=== PATIENT | male | born 1985 | race Caucasian/White ===

== ENCOUNTER 2020-11-11 07:28 | Day surgery (SDC) | payer OTHER, SELFPAY ==
[2020-11-11] VITALS (12 sets, daily range): BP systolic 120–157; BP diastolic 68–99; PULSE 72–108; RESP 16–20; TEMP 36.4–36.5; O2SAT 93–100
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
[2020-11-11 08:24] LABS: Basophils Absolute Auto 0.1 K/mm3 (0.0-0.1); Basophils Percent Auto 0.3 % (0.2-1.2); Eosinophils Absolute Auto 0.2 K/mm3 (0-0.3); Eosinophils Percent Auto 1.2 % (0-4.4); Hematocrit 44.8 % (42.0-52.0); Hemoglobin 15.9 g/dL (14.0-18.0); Immature Granulocyte Absolute 0.08 K/mm3 (0.00-0.031); Immature Granulocyte Percent A 0.5 % (0-0.5); Lymphocytes Absolute Auto 2.73 K/mm3 (0.9-3.2); Lymphocytes Percent Auto 17.9 % (18.3-44.2); Mean Corpuscular HGB Conc 35.5 g/dl (32-36); Mean Corpuscular Volume 90.1 fl (80-100); Mean Platelet Volume 8.5 fl (7.4-10.4); Monocytes Absolute Auto 0.8 K/mm3 (0.1-0.6); Neutrophils Absolute Auto 11.4 K/mm3 (1.3-6.7); Neutrophils Percent Auto 75.1 % (45.5-73.1); Platelet Count Result 299 k/mm3 (150-375); Red Blood Count 4.97 M/mm3 (4.6-6.20); Red Cell Distribution Width 12.5 % (11.5-14.5); White Blood Count 15.3 K/mm3 (4.5-10.0)
[2020-11-11 08:34] LABS: INR 0.9; Prothrombin Time 13.1 Seconds (11.1-14.7)
[2020-11-11 08:39] LABS: Alanine Aminotransferase 21 U/L (4-50); Alkaline Phosphatase 69 U/L (38-126); Anion Gap 13 mmol/L (8-16); Aspartate Amino Transferase 32 U/L (17-59); Bilirubin,Total 0.4 mg/dL (0.2-1.3); Blood Urea Nitrogen 8 mg/dL (9-20); Calcium 8.5 mg/dL (8.4-10.2); Carbon Dioxide 22 mmol/L (22-30); Chloride 107 mmol/L (98-107); Estimated CRCL calculation 121 ml/min; Estimated Glomerular Filt Rate > 60; Glucose 102 mg/dL (75-110); Potassium 3.9 mmol/L (3.4-5.0); Sodium 142 mmol/L (137-145)
[2020-11-11] MEDS: TETANUS,DIPHTHERIA,AC PERTUSSIS ADULT (0.5 ML) BOOSTRIX IM (09:07)
[2020-11-11] MEDS: LACTATED RINGERS 1,000 ML 999 ML IV CONT (09:07)
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
--- NOTE | 2020-11-11 12:00 | WPDHPUPDATE1 ---
History and Physical Update Update Date/Time: 11/11/20 12:00 History and Physical has been reviewed, including an updated exam of the patient. There are NO changes in the patient's condition. Risks, benefits, and alternatives have been discussed and questions answered. Patient agrees to proceed with procedure.
--- NOTE | 2020-11-11 12:06 | WPDANESEFPP ---
Anes - Eval Final PreProcedure Day of Procedure 11/11/20 12:06 Patient weight: normal Heart: regular rate and rhythm Lungs: clear to auscultation and normal air movement Airway: Mallampati scale class IV and special considerations poor opening (due to pain and dried blood on laceration) Neurological: alert and oriented Last oral intake: >/= 8 hours ASA classification: II Emergent: yes Anesthetic plan: proceed Anesthesia type and monitoring: general GIVS and standard monitoring Informed Consent: The patient's anesthetic plan and its attendant risks and benefits were discussed with the patient/family/POA. Questions were solicited and answers provided to the satisfaction of the patient/family/POA.
[2020-11-11] MEDS: LACTATED RINGERS 1,000 ML 30 ML IV CONT (12:10)
[2020-11-11] MEDS: LIDO 1%/EPINEPHRINE 1:100,000 20 ML VIAL 50 ML INFILTRATE (12:40)
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
== END 2020-11-11 15:20 | disposition home or self-care (01) ==
LOC: ANHED 11:54 → ANHSURGERY 11:55
PROVIDERS: Emergency Provider General Practice; Visit Provider Plastic Surgery
PROC: (CPT 13152; principal; 2020-11-11 12:00)
DX: S01.511A Laceration without foreign body of lip, initial encounter (principal); V89.2XXA Person injured in unspecified motor-vehicle accident, traffic, initial encounter; F17.200 Nicotine dependence, unspecified, uncomplicated; S30.1XXA Contusion of abdominal wall, initial encounter; N28.89 Other specified disorders of kidney and ureter; Z23 Encounter for immunization
CPT/HCPCS: 13152; 36415; 70450; 70486; 71260; 72125; 74177; 80053; 85025; 85610; 85730; 90471; 90715; 96365; 99285; A9270; J0330; J0690; J2250; J2405; J2704; J3010; J7120; Q9967

== ENCOUNTER 2021-02-27 08:00 | Outpatient (CLI) | payer OTHER, SELFPAY ==
--- NOTE | ~2021-02-27 | CT_ITS ---
EXAMINATION: CT abdomen wo/w con EXAM DATE: 02/27/2021 08:26 INDICATION: Right renal mass on CT. TECHNIQUE: Spiral CT of the abdomen was performed without and then with intravenous injection of 100 mL Omnipaque 350. Axial, coronal and sagittal images of the abdomen were reviewed. The dose-length product (DLP) for this examination was 346.68 mGy-cm. The exposure was tailored according to patien t size (auto mA exposure control), and iterative reconstruction (ASIR) was used as additional dose re duction technique. Comparison is made to prior examination from 11/11/2020. FINDINGS: Again there is a mass in the superior pole of the right kidney extending toward the hilum m easuring 3.0 cm, malignancy. There is fullness to soft tissue between the pancreas and the duodenal s weep, without discrete fat planes identified between the structures. Difficult to measure region give n absence fat planes, but region could be approximately 4 x 6 cm and could be matted lymphadenopathy. There are increased number of normal-sized mesenteric lymph nodes visible. No nephrolithiasis on the precontrast scan. No hydronephrosis. The liver, spleen, adrenal glands and pancreas are unremarkable. Gallbladder is unremarkable. No bi liary obstruction. The appendix is normal. The stomach and small bowel are unremarkable. There is expected amount of colonic stool. No free intraperitoneal gas. The heart is normal in size. The re are no pericardial or pleural effusions. The lung bases are unremarkable. There are no osteoblas tic or osteolytic lesions identified. IMPRESSION: Right kidney superior poles 3 cm mass and suspicion of developing matted portacaval lymph adenopathy. Differential diagnosis includes renal cell cancer with metastatic disease, both could be lymphoma, or could be renal cell cancer and lymphoma. Recommend , oncology consult for most appropr iate next course given no good window present for percutaneous CT-guided biopsy. Reviewed, dictated and finalized at location B. IMPRESSION: Right kidney superior poles 3 cm mass and suspicion of developing m atted portacaval lymphadenopathy. Differential diagnosis includes renal cell ca ncer with metastatic disease, both could be lymphoma, or could be renal cell ca ncer and lymphoma. Recommend , oncology consult for most appropriate next cou rse given no good window present for percutaneous CT-guided biopsy.
== END 2021-02-27 08:01 | disposition home or self-care (01) ==
LOC: CHSIMG 08:02
PROVIDERS: PCP Internal Medicine; Visit Provider Internal Medicine
DX: N28.89 Other specified disorders of kidney and ureter (principal)
CPT/HCPCS: 74170; Q9967

== ENCOUNTER 2021-05-03 03:28 | Emergency (ER) | payer OTHER, SELFPAY ==
[2021-05-03] VITALS (7 sets, daily range): BP systolic 120–129; BP diastolic 70; PULSE 89–112; RESP 16–22; TEMP 36.6–37; O2SAT 95–98
--- NOTE | ~2021-05-03 | XR_ITS ---
EXAMINATION: XR chest 2V DATE: 05/03/2021 04:46 INDICATION: Dyspnea and wheezing TECHNIQUE: PA and lateral views of the chest were obtained. COMPARISON: Chest CT dated 11/11/2020 FINDINGS: Calcified right middle lobe nodule consistent with old granulomatous disease. No other airspace opaci ties, pulmonary edema, pleural effusion or pneumothorax. The cardiomediastinal silhouette is normal. Visualized bones and soft tissues are unremarkable. IMPRESSION: 1. No acute cardiopulmonary disease. Reviewed, dictated and finalized at location A.
--- NOTE | 2021-05-03 03:45 | ED.GENADULT ---
HPI - General Adult General Chief complaint: Unspecified Stated complaint: sob Time Seen by Provider: 05/03/21 03:45 Source: patient Mode of arrival: EMS Limitations: no limitations Related Data Allergies Allergy/AdvReac Type Severity Reaction Status Date / Time No Known Allergies Allergy Verified 11/11/20 07:35 PMFSH Past Medical History Medical History Patient denies medical problems Surgical History Surgical History (Updated 11/11/20 @ 08:15 by Daly Angeles MD) No pertinent past surgical history Social History Social History (Updated 11/11/20 @ 11:24 by Roger Coleman MD) Smoking status: Current every day smoker Alcohol intake: current Substance use: never Additional living arrangements comments: Has girlfriend in ED Additional occupation/education comments: employed Gender identity (if verbalized by the patient): Male Medical Decision Making Lab Data Labs: Lab Results 05/03/21 Range/Units 03:40 SARS-CoV-2 Ag (Rapid) Pending Discharge Plan Discharge Prescriptions: No Action hydrocodone-acetaminophen 5-325 mg tablet 1 tablet PO Q6H PRN (Reason: pain) Qty: 6 RF: 0
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
--- NOTE | 2021-05-03 03:49 | ED.SOB ---
HPI - SOB/Dyspnea General Chief Complaint: Unspecified Stated Complaint: sob Time Seen by Provider: 05/03/21 03:45 Source: patient Mode of arrival: ambulatory Limitations: no limitations History of Present Illness HPI Narrative: 35-year-old man with a history of asthma and who is 1 week post right nephrectomy brought to the ED by EMS after he woke at 1:00 a.m. with shortness of breath and wheezing. Patient states that he had no rescue inhalers at hand. He denies chest pain, cough or cold symptoms, fever, vomiting and lower extremity pain. He is a smoker and has not had the COVID or influenza vaccine. He was admitted to the hospital for his asthma as a child but not since. He states his symptoms have improved since he received albuterol nebs from EMS. He also received 125 of Solu-Medrol IV. MD elicited complaint: shortness of breath, cough and asthma attack Pertinent past history: asthma Onset (ago): hour(s) (2.5) Context: other (Recent surgery) Timing: constant Exacerbating factors: nothing Relieving factors: bronchodilators Known history of: asthma Associated symptoms: cough and wheezing Treatment prior to arrival: oxygen and bronchodilator Related Data Home oxygen amount: none Allergies Allergy/AdvReac Type Severity Reaction Status Date / Time No Known Allergies Allergy Verified 11/11/20 07:35 Review of Systems Review of Systems: All systems reviewed & are unremarkable except as noted in HPI and below Constitutional: Constitutional: Denies chills and Denies fever(s) Eyes: Eyes: Denies change in vision and Denies photophobia ENT: Denies nasal congestion and Denies sore throat Cardiovascular: Cardiovascular: Denies chest pain and Denies radiating jaw, neck or arm pain Respiratory: Respiratory: Reports cough, Reports dyspnea and Reports wheezing Gastrointestinal: Gastrointestinal: Denies abdominal pain, Denies nausea and Denies vomiting Musculoskeletal: Musculoskeletal: Denies arthralgias and Denies joint swelling Integumentary/Breasts: Skin/Breast: Denies pruritus, Denies erythema and Denies rash Neurologic: Denies vertigo, Denies dizziness, Denies syncope, Denies headache(s) and Denies numbness Hematologic/Lymphatic: Hematologic/Lymphatic: Denies easy bleeding and Denies easy bruising Allergic/Immunologic: Allergic/Immunologic: Denies lip swelling and Denies tongue swelling [facility] Past Medical History Medical History (Updated 05/03/21 @ 04:39 by Mic Lomas MD) Asthma Kidney tumor Patient denies medical problems Surgical History Surgical History (Updated 05/03/21 @ 03:57 by Mic Lomas MD) History of nephrectomy, right No pertinent past surgical history Social History Social History Smoking status: Current every day smoker Alcohol intake: current Substance use: never Additional living arrangements comments: Has girlfriend in ED Additional occupation/education comments: employed Gender identity (if verbalized by the patient): Male Exam Const: General: healthy appearing and alert Orientation/consciousness: patient oriented x3 Limitations: no limitations Other: Mild acute distress. HENMT: Head: normal to inspection Ears: external ears normal, TM's normal bilaterally and EAC's normal General nose exam: Normal nares present Face and sinus: normal facial exam Mouth: Yes moist mucous membranes Throat: posterior oropharynx normal Eyes: Conjunctivae: conjunctivae normal Pupils: Equal, round and reactive pupils present EOM: EOMs intact bilaterally Resp: Effort & Inspection: normal respiratory effort, not labored and tachypneic (Mild with mild increased work of breathing.) Auscultation: clear to auscultation bilaterally, no rales, no rhonchi and wheezes expiratory wheezes and throughout Cardio: Rate: regular rate Rhythm: regular rhythm Heart sounds: no murmurs Skin: General skin exam: normal color, no
--- NOTE | 2021-05-03 03:58 | PC.NURSE ---
patient on cell phone, had to be told to put down for radioligy assessment.
[2021-05-03 04:00] LABS: SARS-CoV-2 Ag Negative (Negative)
[2021-05-03 04:11] LABS: Base Excess ABG 0.9 mmol/L (0-2); Oxygen Content ABG 19.2 %vol (16.0-22.0); Oxygen Saturation ABG 89.4 % (95-97); Oxyhemoglobin 88.9 % (94-100); PCO2 ABG 38.5 mmHg (35-45); PO2 ABG 56.1 mmHg (80-90); Total Hemoglobin 15.4 g/dL (12.0-18.0); pH ABG 7.43 (7.35-7.45)
[2021-05-03 04:13] LABS: Basophils Absolute Auto 0.12 K/mm3 (0.00-0.10); Basophils Percent Auto 0.7 % (0.0-1.0); Device ROOM AIR; Eosinophils Absolute Auto 0.74 K/mm3 (0.02-0.50); Eosinophils Percent Auto 4.6 % (1.0-6.0); Hematocrit 44.1 % (40.0-54.0); Hemoglobin 14.8 g/dL (14.0-18.0); Immature Granulocyte Absolute 0.24 K/mm3 (0.00-0.00); Immature Granulocyte Percent A 1.5 % (0.0-0.0); Lymphocytes Absolute Auto 2.16 K/mm3 (1.10-4.50); Lymphocytes Percent Auto 13.3 % (18.0-42.0); Mean Corpuscular HGB Conc 33.6 g/dL (32.0-36.0); Mean Corpuscular Volume 92.3 fL (78.0-102.0); Mean Platelet Volume 8.3 fl (8.7-11.0); Modified Allen's Test Pass; Monocytes Percent Auto 4.9 % (2.0-11.0); Neutrophils Absolute Auto 12.1 K/mm3 (1.7-7.2); Platelet Count Result 452 K/mm3 (150-420); Red Blood Count 4.78 M/mm3 (4.70-6.10); Red Cell Distribution Width 11.9 % (11.6-14.4); Site Drawn RIGHT RADIAL; White Blood Count 16.2 K/mm3 (4.8-10.8)
[2021-05-03 04:28] LABS: Alanine Aminotransferase 68 U/L (16-63); Albumin Level 4.1 g/dL (3.4-5.0); Alkaline Phosphatase 77 U/L (46-116); Anion Gap 10 mmol/L (8-16); Aspartate Amino Transferase 31 U/L (15-37); Bilirubin,Total 0.4 mg/dL (0.00-1.00); Blood Urea Nitrogen 22 mg/dL (7-18); Calcium 9.1 mg/dL (8.5-10.1); Carbon Dioxide 30 mmol/L (21-32); Chloride 101 mmol/L (98-108); Estimated CRCL calculation 65 ml/min; Estimated Glomerular Filt Rate > 60; Glucose 137 mg/dL (70-99); Osmolality Calculated 297 mOsm/kg (285-295); Sodium 141 mmol/L (136-145); Total Protein 7.8 g/dL (6.4-8.2)
[2021-05-03] MEDS: SODIUM CHLORIDE 0.9% 3 ML NEB FOR INHALATION (04:45)
[2021-05-03] MEDS: IPRATROPIUM 0.5 MG/ALBUTEROL SULFATE 2.5 MG AMPUL.NEB 3 ML INHALATION (04:45)
--- NOTE | 2021-05-03 05:08 | PC.NURSE ---
0440 friend here refusing to wear a mask states house keeping did not have one on while waxing, cussing at staff when brought to room of patient states I have pictures I am going to the news with this.
== END 2021-05-03 05:27 | disposition home or self-care (01) ==
PROVIDERS: Emergency Provider Emergency Medicine; PCP Internal Medicine
DX: J45.901 Unspecified asthma with (acute) exacerbation (principal); F17.200 Nicotine dependence, unspecified, uncomplicated; Z90.5 Acquired absence of kidney
CPT/HCPCS: 36415; 36600; 71046; 80053; 82805; 85025; 87426; 99283; 99284; A9270; C9803

== ENCOUNTER 2021-05-03 12:27 | Outpatient (CLI) | payer OTHER, SELFPAY ==
--- NOTE | ~2021-05-03 | CT_ITS ---
EXAMINATION: CTA chest PE protocol DATE: 05/03/2021 15:29 INDICATION: Shortness of breath TECHNIQUE: Computed tomography angiography (CTA) of the chest was performed with 100 mL Omnipaque-350 intravenous contrast timed to evaluate the pulmonary arteries. Coronal maximum intensity projection 3D-reconstructions were created by the technologist. The dose-length product (DLP) was 207.84 mGy-cm. Automated exposure control and iterative reconstruction technique were employed. COMPARISON: 11/11/2020 FINDINGS: The pulmonary arteries are well-opacified. No pulmonary embolism is identified. There is mi ld dependent atelectasis. No pleural effusion or pneumothorax is identified. There is trace pneumomed iastinum. Also seen is a small amount of subcutaneous gas in the right anterior and lateral abdominal wall. No pathologically enlarged thoracic lymph nodes are identified. The heart size is normal. A ca lcified nodule of the right middle lobe is consistent with old granulomatous disease. There are small foci of free intraperitoneal gas in the right abdomen heterogeneous attenuation in the right kidney upper pole is consistent with recent mass resection. There appears to be a tiny focus of contained he morrhage in the surgical bed. IMPRESSION: 1. No pulmonary embolism or acute cardiopulmonary abnormality. 2. Trace pneumomediastinum and free intraperitoneal gas and small volume of subcutaneous gas in the a nterior and lateral right abdominal wall. Findings are most consistent with recent surgery. Reviewed, dictated and finalized at location A. IMPRESSION: 1. No pulmonary embolism or acute cardiopulmonary abnormality. 2. Trace pneumomediastinum and free intraperitoneal gas and small volume of sub cutaneous gas in the anterior and lateral right abdominal wall. Findings are mo st consistent with recent surgery.
== END 2021-05-03 12:28 | disposition home or self-care (01) ==
PROVIDERS: PCP Internal Medicine; Visit Provider Internal Medicine
DX: R06.02 Shortness of breath (principal); R79.1 Abnormal coagulation profile; Z98.890 Other specified postprocedural states
CPT/HCPCS: 36415; 71275; 85380; Q9967

== ENCOUNTER 2021-05-04 07:18 | Outpatient (CLI) | payer OTHER, SELFPAY ==
--- NOTE | ~2021-05-04 | US_ITS ---
EXAMINATION: US venous doppler [facility] DATE: 05/04/2021 07:45 INDICATION: Shortness of breath. Elevated d-dimer. Recent surgery. TECHNIQUE: Grayscale ultrasound images without and with compression and Doppler ultrasound images of the bilateral lower extremity veins were obtained. COMPARISON: None. FINDINGS: The visualized portions of right common femoral vein, profunda (deep) femoral vein, femoral vein, pop liteal vein, posterior tibial veins, peroneal veins, gastrocnemius vein and greater saphenous vein ou tflow are patent. The visualized portions of left common femoral vein, profunda femoral vein, femoral vein, popliteal v ein, posterior tibial veins, peroneal veins, gastrocnemius vein and greater saphenous vein outflow ar e patent. IMPRESSION: 1. No deep venous thrombosis in either lower limb. Reviewed, dictated and finalized at location A.
== END 2021-05-04 07:19 | disposition home or self-care (01) ==
LOC: CHSIMG 07:19
PROVIDERS: PCP Internal Medicine; Visit Provider Internal Medicine
DX: R06.02 Shortness of breath (principal); R79.1 Abnormal coagulation profile; Z98.890 Other specified postprocedural states
CPT/HCPCS: 93970

== ENCOUNTER 2021-06-24 20:29 | Emergency (ER) | payer OTHER, SELFPAY ==
--- NOTE | ~2021-06-24 | XR_ITS ---
EXAMINATION: XR chest 1V portable DATE: 06/24/2021 20:53 INDICATION: Asthma and COVID presenting with shortness of breath TECHNIQUE: frontal view of the chest was obtained. COMPARISON: Chest radiograph dated 05/03/2021 FINDINGS: The lungs remain clear with no focal airspace opacities, pulmonary edema, pleural effusion or pneumot horax. The cardiomediastinal silhouette is normal. Visualized bones and soft tissues are unremarkable . IMPRESSION: 1. Normal chest radiograph. Reviewed, dictated and finalized at location A. TIC SEWER IMPRESSION: 1. Normal chest radiograph.
[2021-06-24 20:35] VITALS: PULSE 114; O2SAT 93
[2021-06-24 20:38] VITALS: BP 154/96; PULSE 115; RESP 24; TEMP 36.9; O2SAT 94
--- NOTE | 2021-06-24 20:41 | ED.ASTHMA ---
HPI - Asthma General Chief Complaint: Shortness of Breath/Dyspnea Stated Complaint: ASTHMA ATTACK Source: patient and RN notes reviewed Mode of arrival: ambulatory Limitations: no limitations History of Present Illness complaint: asthma attack , shortness of breath and wheezing Onset (ago): hour(s) (14) Severity: severe Context: other ( exposed to COVID someone in family was positive 2 weeks ago) Associated symptoms: dry cough Asthma History: childhood onset Treatments Prior to Arrival: inhaled bronchodilator Related Data Current Asthma Therapy: inhaled bronchodilator Allergies Allergy/AdvReac Type Severity Reaction Status Date / Time No Known Allergies Allergy Verified 11/11/20 07:35 Review of Systems Review of Systems: All systems reviewed & are unremarkable except as noted in HPI and below Constitutional: Constitutional: Denies chills and Denies fever(s) Cardiovascular: Cardiovascular: Denies chest pain Gastrointestinal: Gastrointestinal: Denies abdominal pain, Denies nausea and Denies vomiting Neurologic: Comments: no change in taste or smell PMFSH Past Medical History Medical History Asthma Kidney tumor Patient denies medical problems Surgical History Surgical History History of nephrectomy, right No pertinent past surgical history Social History Social History Smoking status: Current every day smoker Alcohol intake: current Substance use: never Additional living arrangements comments: Has girlfriend in ED Additional occupation/education comments: employed Gender identity (if verbalized by the patient): Male Exam Narrative: Patient seen in full PPE Const: General: no acute distress, alert and ill appearing acutely Nutritional Appearance: well nourished and thin Orientation/consciousness: patient oriented x3 HENMT: Head: normal to inspection Ears: external ears normal Face and sinus: normal facial exam Eyes: Conjunctivae: conjunctivae normal Pupils: Equal, round and reactive pupils present EOM: EOMs intact bilaterally Neck: Neck: normal visual inspection Resp: Effort & Inspection: labored, tachypneic and uses accessory muscles Auscultation: wheezes expiratory wheezes, anterior, posterior and throughout Cardio: Rate: tachycardic Rhythm: regular rhythm GI: GI Palp: Yes Soft to palpation, No Tenderness to palpation present (GI) and No Guarding due to palpation present (GI) Auscultation: normal bowel sounds Back/Spine/Pelvis: Cervical Spine: cervical ROM normal Thoracic/Lumbar Spine: thoraco-lumbar ROM normal Skin: General skin exam: normal color and no pallor Lesions: no lesions Neuro: General: patient oriented x3, moves all extremities, no meningeal signs, no focal motor deficits and CN's II-XI intact bilaterally Speech: normal speech Gait exam (Neuro): Normal gait present Extrem: General: normal to inspection and no clubbing, cyanosis or edema Psych: Appearance: grossly normal and well kempt Mental Status: mental status grossly normal Affect: Anxious affect present Attitude: cooperative Thought content: Yes Normal thought content present Course Course Emergency Course: I discussed admission with the patient for COVID any declined at this time. I will discharge him with Decadron he will continue his nebulizers at home. Vital Signs Vital signs: Vital Signs Pulse Rate 114 H 06/24/21 20:35 Pulse Oximetry 93 06/24/21 20:35 Temperature 36.9 C 06/24/21 20:38 Pulse Rate 97 06/24/21 20:59 Respiratory Rate 16 06/24/21 20:59 Blood Pressure 146/67 H 06/24/21 20:58 Pulse Oximetry 99 06/24/21 20:59 MDM - Asthma Lab Data Attestation: I reviewed the patient's lab results. Result diagrams: 06/24/21 21:05 06/24/21 21:05 Labs: Lab Results 06/24
[2021-06-24 20:54] VITALS: PULSE 95; RESP 15; O2SAT 99
[2021-06-24] MEDS: ALBUTEROL SULFATE (*SP) INHALER 4 PUFF INHALATION (20:54)
[2021-06-24 20:58] VITALS: BP 146/67; PULSE 107; RESP 22; O2SAT 94
[2021-06-24 20:59] VITALS: PULSE 97; RESP 16; O2SAT 99
[2021-06-24 21:09] LABS: Basophils Absolute Auto 0.06 K/mm3 (0.00-0.10); Basophils Percent Auto 0.5 % (0.0-1.0); Eosinophils Absolute Auto 0.46 K/mm3 (0.02-0.50); Eosinophils Percent Auto 3.7 % (1.0-6.0); Hematocrit 41.9 % (40.0-54.0); Hemoglobin 14.3 g/dL (14.0-18.0); Immature Granulocyte Absolute 0.08 K/mm3 (0.00-0.00); Immature Granulocyte Percent A 0.6 % (0.0-0.0); Lymphocytes Absolute Auto 3.05 K/mm3 (1.10-4.50); Lymphocytes Percent Auto 24.2 % (18.0-42.0); Mean Corpuscular HGB Conc 34.1 g/dL (32.0-36.0); Mean Corpuscular Hemoglobin 30.8 pg (27.0-31.0); Mean Corpuscular Volume 90.3 fL (78.0-102.0); Mean Platelet Volume 8.8 fl (8.7-11.0); Monocytes Absolute Auto 0.93 K/mm3 (0.10-0.90); Monocytes Percent Auto 7.4 % (2.0-11.0); Neutrophils Percent Auto 63.6 % (50.0-70.0); Platelet Count Result 326 K/mm3 (150-420); Red Blood Count 4.64 M/mm3 (4.70-6.10); Red Cell Distribution Width 12.5 % (11.6-14.4); White Blood Count 12.6 K/mm3 (4.8-10.8)
[2021-06-24 21:28] LABS: Lactic Acid Reflex 1.8 mmol/L (0.4-2.0)
[2021-06-24 21:37] LABS: Alanine Aminotransferase 31 U/L (16-63); Albumin Level 3.9 g/dL (3.4-5.0); Alkaline Phosphatase 79 U/L (46-116); Anion Gap 13 mmol/L (8-16); Aspartate Amino Transferase 15 U/L (15-37); Bilirubin,Total 0.5 mg/dL (0.00-1.00); Blood Urea Nitrogen 19 mg/dL (7-18); Calcium 8.9 mg/dL (8.5-10.1); Carbon Dioxide 26 mmol/L (21-32); Chloride 103 mmol/L (98-108); Estimated CRCL calculation 79 ml/min; Estimated Glomerular Filt Rate > 60; Ferritin 172 ng/mL (26-388); Glucose 98 mg/dL (70-99); Magnesium 1.7 mg/dL (1.8-2.4); Osmolality Calculated 296 mOsm/kg (285-295); Potassium 3.8 mmol/L (3.5-5.1); Sodium 142 mmol/L (136-145)
[2021-06-24 21:46] LABS: SARS-CoV-2 RNA PCR Positive (Negative)
[2021-06-24 21:54] LABS: Influenza Control Valid (Valid)
--- NOTE | 2021-06-24 22:01 | PC.NURSE ---
Discussed POC and possible admission for pt. Pt declines admission and thinks he is feeling better to go home and take meds at home. VSS at this time.
[2021-06-24 22:04] VITALS: BP 120/76; PULSE 100; RESP 20; TEMP 36.6; O2SAT 94
== END 2021-06-24 22:17 | disposition home or self-care (01) ==
PROVIDERS: Emergency Provider Emergency Medicine; PCP Internal Medicine
DX: U07.1 COVID-19 (principal); J45.901 Unspecified asthma with (acute) exacerbation
CPT/HCPCS: 71045; 80053; 82728; 83605; 83735; 85025; 87804; 94640; 96374; 99283; 99284; A9270; C9803; J1100; U0003; U0005

== ENCOUNTER 2021-07-19 01:14 | Observation (INO) | payer OTHER, SELFPAY ==
[2021-07-19] VITALS (19 sets, daily range): BP systolic 109–151; BP diastolic 57–102; PULSE 85–120; RESP 16–25; TEMP 36.1–36.4; O2SAT 80–100; BMI 22.4
--- NOTE | ~2021-07-19 | XR_ITS ---
EXAMINATION: XR chest 1V portable INDICATION: Shortness of breath TECHNIQUE: Portable AP chest at 0131 hours COMPARISON: 06/24/2021 FINDINGS: The lungs are free of acute opacities. There is no pleural effusion or pneumothorax. The ca rdiomediastinal silhouette is normal. IMPRESSION: 1. No acute cardiopulmonary abnormality. Reviewed, dictated and finalized at location A. NNA ENGINEER
[2021-07-19] MEDS: methylPREDNISolone SOD SUCC 125 MG VIAL IV PUSH ×2 (01:20→09:25)
--- NOTE | 2021-07-19 01:20 | ECG_ITS ---
Measurements Intervals [place] Rate: 104 P: 78 OH: 141 QRS: 69 QRSD: 85 T: 70 QT: 340 QTc: 449 Interpretive Statements SINUS TACHYCARDIA POSSIBLE LEFT ATRIAL ENLARGEMENT BORDERLINE ECG Electronically Signed On 07-19-2021 6:21:50 SOAP SLABBER by Flex Sosa D.O.
[2021-07-19] MEDS: MAGNESIUM SULF 2 GM/WATER 50ML 2 GM/50 ML BAG IVPB (01:24)
[2021-07-19 01:42] LABS: Base Excess ABG -2.1 mmol/L (0-2); Oxygen Content ABG 21.3 %vol (16.0-22.0); Oxygen Saturation ABG 98.3 % (95-97); Oxyhemoglobin 97.2 % (94-100); PCO2 ABG 51.3 mmHg (35-45); PO2 ABG 143.8 mmHg (80-90); Total Hemoglobin 15.4 g/dL (12.0-18.0); pH ABG 7.31 (7.35-7.45)
[2021-07-19 01:44] LABS: Modified Allen's Test Pass; Site Drawn RIGHT RADIAL
[2021-07-19 01:45] LABS: Device OTHER DEVICE
[2021-07-19 01:46] LABS: Hemoglobin 14.9 g/dL (14.0-18.0); Mean Corpuscular HGB Conc 33.1 g/dL (32.0-36.0); Mean Corpuscular Hemoglobin 30.9 pg (27.0-31.0); Mean Corpuscular Volume 93.4 fL (78.0-102.0); Mean Platelet Volume 8.9 fl (8.7-11.0); Platelet Count Result 395 K/mm3 (150-420); Red Blood Count 4.82 M/mm3 (4.70-6.10); Red Cell Distribution Width 12.8 % (11.6-14.4); White Blood Count 13.2 K/mm3 (4.8-10.8)
[2021-07-19] MEDS: IPRATROPIUM BR 0.02% INH SOLN 0.5 MG/2.5 ML VIAL 1 MG (01:47)
[2021-07-19] MEDS: ALBUTEROL SULFATE NEB 2.5 MG/3 ML INH 10 MG (01:47)
[2021-07-19] MEDS: ALBUTEROL SULFATE NEB 2.5 MG/3 ML INH (01:47)
--- NOTE | 2021-07-19 01:49 | ED.ASTHMA ---
HPI - Asthma General Chief Complaint: Asthma Stated Complaint: sob Source: patient Mode of arrival: ambulatory Limitations: clinical condition (in extreme distress) History of Present Illness HPI Narrative: Pt presents to the ED in RESP distress. He has a hx of Asthma and has freq breathing problems. He apparently had COVID, and was off isolation 2 weeks ago. Initally he was only able to communicate 1 word at a time, and sitting/standing in a tripod position. He is diaphoretic and very poor air movement as well. Pt states that he ran out of his inhaler today. This attack started about an hour ago, but he has used his inhaler 20-30 times today. He reports using an inhaler about every 2-3 weeks entirely. He said ever since his cancer was removedin april from his kidney, his asthma seems worse. Today it was very windy and he works outside, and he thinks that what triggered this attack. Pt strongly encouraged to quit smoking and not drive next time this happens, (i related the seriousness of his condition to him) he did respond very well to breathing treatments MD complaint: asthma attack Onset (ago): hour(s) Context: ran out of meds Asthma History: history of frequent attacks and history of prior ED visit Treatments Prior to Arrival: inhaled bronchodilator Related Data Allergies Allergy/AdvReac Type Severity Reaction Status Date / Time No Known Allergies Allergy Verified 07/19/21 02:26 Review of Systems Review of Systems: All systems reviewed & are unremarkable except as noted in HPI and below ROS unobtainable: Yes unobtainable due to medical condition (pt only able to speak 1-2 words at a time) Constitutional: Constitutional: Reports no additional constitutional complaints Eyes: Eyes: Reports no additional eye complaints ENT: Reports system reviewed and no additional complaints, except as documented Cardiovascular: Cardiovascular: Reports no additional cardiovascular complaints Respiratory: Respiratory: Reports cough, Reports dyspnea and Reports wheezing Gastrointestinal: Gastrointestinal: Reports no additional gastrointestinal complaints Genitourinary: Genitourinary: Reports no additional male genitourinary complaints Musculoskeletal: Musculoskeletal: Reports no additional musculoskeletal complaints Neurologic: Reports dizziness, Reports numbness and Reports weakness Psychiatric: Psychiatric: Reports no additional psychiatric complaints Endocrine: Endocrine: Reports no additional endocrine complaints Hematologic/Lymphatic: Hematologic/Lymphatic: Reports no additional hematologic/lymphatic complaints Allergic/Immunologic: Allergic/Immunologic: Reports no additional allergic/immunologic complaints, Denies lip swelling, Denies throat swelling, Denies tongue swelling and Reports wheezing PMFSH Past Medical History Medical History Asthma Kidney tumor Patient denies medical problems Surgical History Surgical History History of nephrectomy, right No pertinent past surgical history Social History Social History Smoking status: Current every day smoker Alcohol intake: current Substance use: never Additional living arrangements comments: Has girlfriend in ED Additional occupation/education comments: employed Gender identity (if verbalized by the patient): Male Exam Const: General: alert, diaphoretic and ill appearing Orientation/consciousness: patient oriented x3 HENMT: Mouth: Yes dry mucous membranes Chest: Chest palpation & inspection: normal inspection of the chest Resp: Effort & Inspection: labored, retractions and uses accessory muscles Auscultation: wheezes and diminished lung sounds GI: GI Palp: Yes Soft to palpation and No Tenderness to palpation present (GI) Other: ab muscles recruited in breathing
[2021-07-19 01:59] LABS: D Dimer 0.22 mg/L (0.19-0.50); INR 1.1; Prothrombin Time 11.2 Seconds (9.50-12.10)
[2021-07-19 02:03] LABS: Band Neutrophils Percent 0 % (0-6); Basophils Percent Manual 0 % (0-1); Eosinophils Absolute Manual 1.45 K/mm3 (0.02-0.5); Eosinophils Percent Manual 11 % (1-6); Lymphocytes Percent Manual 44 % (18-44); Monocytes Absolute Manual 0.66 K/mm3 (0.1-0.90); Monocytes Percent Manual 5 % (3-9); Neutrophils Absolute Manual 5.28 K/mm3 (1.3-6.7); Neutrophils Percent Manual 40 % (46-73)
[2021-07-19 02:04] LABS: Alanine Aminotransferase 27 U/L (16-63); Alkaline Phosphatase 74 U/L (46-116); Anion Gap 10 mmol/L (8-16); Aspartate Amino Transferase 18 U/L (15-37); Bilirubin,Total 0.4 mg/dL (0.00-1.00); Blood Urea Nitrogen 17 mg/dL (7-18); Calcium 8.6 mg/dL (8.5-10.1); Carbon Dioxide 30 mmol/L (21-32); Chloride 104 mmol/L (98-108); Estimated Glomerular Filt Rate > 60; Glucose 121 mg/dL (70-99); Magnesium 2.1 mg/dL (1.8-2.4); Osmolality Calculated 300 mOsm/kg (285-295); Platelet Estimate Adequate (Adequate); Potassium 4.2 mmol/L (3.5-5.1); Sodium 144 mmol/L (136-145); Total Protein 7.6 g/dL (6.4-8.2); Troponin I 9.2 ng/L (0.00-60.4)
[2021-07-19] MEDS: ALBUTEROL SULFATE NEB 2.5 MG/3 ML INH 20 MG INHALATION (02:28)
[2021-07-19] MEDS: ALBUTEROL SULFATE NEB 2.5 MG/3 ML INH INHALATION ×3 (03:49→05:54)
--- NOTE | 2021-07-19 05:06 | PC.NURSE ---
Pt to the floor per stretcher. Pt is alert and oriented x4 and ambulates per self. Pt presently has an Albuterol nebulizer treatment going and doesnt voice any c/o shortness of breath; SAO2 is 98%. Pt's telemetry is showing sinus tachycardia with a pulse of 104. pt denies c/o shortness of breath or pain.
--- NOTE | 2021-07-19 05:12 | PC.NURSE ---
Pt is dozing quietly at this time and no signs of shortness of breath or respiratory distress noted.
[2021-07-19] MEDS: IPRATROPIUM BR 0.02% INH SOLN 0.5 MG/2.5 ML VIAL INHALATION (05:54)
[2021-07-19] MEDS: FLUTICASONE PROP 220 MCG (*SP) 12 GM INHALER 2 PUFF INHALATION (07:39)
--- NOTE | 2021-07-19 09:23 | PM.SD2 ---
Same Day Admit/Disch: HPI History of Present Illness Chief complaint: Status Asthmaticus Narrative: Lai Khan is a 36 year old male that presented to emergency department with shortness of breath. He has a history of asthma and notes that he has had several asthma attacks this year. Patient notes that over several days his shortness of breath have worsened and he completely used his rescue inhaler. He does work outside and believes that that precipitated his asthma attack. Today patient condition has improved he is not requiring any supplementary oxygen or does not have any shortness of breath. Vital signs 112/57 2097.297% on room air heart rate slightly elevated at 118 possibly due to steroid use, WBCs 13.2 hemoglobin 14.9 hematocrit 45.0 platelets 395 D-dimer 0.22 ABG pH 7.31 CO2 51.302 143.8 bicarb 25 sodium 144, potassium 4.2, BUN 17, creatinine 1.15, glucose 121, magnesium 2.1 troponin 9.2, chest x-ray unremarkable. Patient will discharge home and recommended to follow-up with the lab scientist due to his frequent asthma attacks. The patient denies SOB, CP, palpitation, extremity numbness, lightheadedness, dizziness, constipation, diarrhea, chills, or fever. PMFSH Past Medical History Medical History Asthma Kidney tumor Patient denies medical problems Surgical History Surgical History History of nephrectomy, right No pertinent past surgical history Social History Social History Smoking packs per day: 1 Smoking cigarettes per day: 20.0 Years smoked: 13 Smoking pack-years: 13.00 Smoking status: Current every day smoker Tobacco type: cigarettes Second hand tobacco smoke exposure: Yes Alcohol intake: current Substance use: never Substance use type: does not use Additional living arrangements comments: Has girlfriend in ED Additional occupation/education comments: employed Gender identity (if verbalized by the patient): Male Spiritual care concerns: No Same Day Admit/Disch: Med Pre-admit Medications Home Medications Medication Instructions Recorded Confirmed Type albuterol sulfate 2 puff INHALATION Q4-6H PRN #8.5 g 07/19/21 Rx fluticasone propion-salmeterol 2 puff INHALATION Q12H #12 g 07/19/21 Rx [Advair HFA] fluticasone propionate [Flonase 1 spray INTRANASAL Q12H #16 g 07/19/21 Rx Allergy Relief] ipratropium-albuterol 3 ml INHALATION QID PRN 30 Days 07/19/21 Rx #180 ml loratadine [Claritin] 10 mg PO DAILY PRN 30 Days #30 07/19/21 Rx tablet methylprednisolone [Medrol ([place])] See Rx Instructions .ROUTE 07/19/21 Rx .COMPLEX #21 ea nebulizer accessories #1 ea 07/19/21 Rx nebulizers #1 ea 07/19/21 Rx Exam Narrative: GENERAL: This is a well-nourished, well-developed patient, in no apparent distress. HEAD: normocephalic, atraumatic. EYES: PERRL. Sclera clear/white. Vision is grossly intact. EARS: External ears normal, auditory canals clear and without drainage, TMs normal without perforation. Hearing grossly intact. NOSE: External nose normal with no obvious nasal discharge, nares without redness, no rhinorrhea. THROAT: Mucous membranes moist, posterior pharynx clear. NECK: Neck supple, non-tender without lymphadenopathy, masses or thyromegaly. CARDIOVASCULAR: Regular rate and rhythm without murmurs, gallops, or rubs. RESPIRATORY: Clear to auscultation. Breath sounds equal bilaterally. No wheezes, rales, or rhonchi. GASTROINTESTINAL: Abdomen soft, non-tender, nondistended. Bowel sounds are active. No hepato-splenomegaly, or palpable masses. No guarding. SKIN: warm, intact with no suspicious lesions or rash, good texture and turgor. NEURO: awake, alert, and oriented to person, place and time. There were no obvious focal neurologic abnormalities. Steady gait EXTREMITIES: Normal range o
[2021-07-19] MEDS: FLUTICASONE PROPIONATE 0.05% NA SPR 16 GM BTL (*BKC) 1 SPRAY NASAL (09:31)
--- NOTE | 2021-07-19 12:35 | PC.NURSE ---
Discharge instructions reviewed with patient and spouse. IV sites removed. Patient dressed himself and declined wheelchair to leave floor. Ambulated independently off floor.
--- NOTE | 2021-07-24 14:02 | PC.NURSE ---
Unable to contact for discharge call back.
== END 2021-07-19 12:35 | disposition home or self-care (01) ==
LOC: CHSED 02:31 → CHS2ND 09:23
PROVIDERS: Admitting Provider Emergency Medicine; Emergency Provider Emergency Medicine; PCP Internal Medicine; Visit Provider Emergency Medicine
DX: J45.902 Unspecified asthma with status asthmaticus (principal); J44.9 Chronic obstructive pulmonary disease, unspecified; F17.200 Nicotine dependence, unspecified, uncomplicated; Z85.528 Personal history of other malignant neoplasm of kidney; Z90.5 Acquired absence of kidney
CPT/HCPCS: 36415; 36600; 71045; 80053; 82805; 83735; 84484; 85025; 85380; 85610; 93005; 94640; 96365; 96367; 96375; 96376; 99285; A9270; G0378; J0456; J2930; J3475

== ENCOUNTER 2021-10-12 12:55 | Outpatient (CLI) | payer OTHER, SELFPAY ==
[2021-10-12 13:08] LABS: Basophils Absolute Auto 0.06 K/mm3 (0.00-0.10); Basophils Percent Auto 0.6 % (0.0-1.0); Eosinophils Absolute Auto 0.42 K/mm3 (0.02-0.50); Eosinophils Percent Auto 4.4 % (1.0-6.0); Immature Granulocyte Absolute 0.05 K/mm3 (0.00-0.00); Immature Granulocyte Percent A 0.5 % (0.0-0.0); Lymphocytes Absolute Auto 2.81 K/mm3 (1.10-4.50); Lymphocytes Percent Auto 29.4 % (18.0-42.0); Mean Corpuscular HGB Conc 34.1 g/dL (32.0-36.0); Mean Corpuscular Hemoglobin 31.6 pg (27.0-31.0); Mean Corpuscular Volume 92.6 fL (78.0-102.0); Mean Platelet Volume 8.9 fl (8.7-11.0); Monocytes Absolute Auto 0.67 K/mm3 (0.10-0.90); Neutrophils Absolute Auto 5.5 K/mm3 (1.7-7.2); Neutrophils Percent Auto 58.1 % (50.0-70.0); Platelet Count Result 282 K/mm3 (150-420); Red Blood Count 4.43 M/mm3 (4.70-6.10); Red Cell Distribution Width 12.3 % (11.6-14.4); White Blood Count 9.6 K/mm3 (4.8-10.8)
[2021-10-12 13:20] VITALS: PULSE 81; O2SAT 99
[2021-10-12 13:26] VITALS: PULSE 110; O2SAT 96
--- NOTE | 2021-10-12 14:31 | HOMEO2EVAL ---
Evaluation was performed at [facility] Home Oxygen Evaluation RC: Home Oxygen (O2) Evaluation Start: 10/12/21 14:29 Freq: Status: Active Protocol: RPE Activity Type Activity Date Activity User E-Sign Co-Sign Detail Recorded Client Recorded Date Recorded By Document 10/12/21 13:20 KRM [id number] 10/12/21 14:31 KRM Document 10/12/21 13:26 KRM [id number] 10/12/21 14:31 KRM 10/12/21 10/12/21 13:20 13:26 Home O2 Evaluation Test Phase Resting Exercise Oxygen Delivery Room Air Room Air Pulse Oximetry (90-100 %) 99 96 Pulse Rate (60-100 beats/min) 81 110 H Activity Tolerance Excellent Ambulation Distance (feet) 1,400 Ambulation Distance (meters) 426.69 Home Oxygen Evaluation Comments STARTING WALK PT. WALKED ON ROOM AIR. APPROX. 1400 FEET ON ROOM AIR WITH SPO2S STAYING AT 96% AND ABOVE. HR UP TO 110. TOLERATED WELL. Treatment Charges O2 Evaluation - Outpatient
--- NOTE | 2021-10-15 09:48 | WPDPFTINT ---
PFT Procedure Performed PFT Procedure Performed Spirometry with Pre/Post Bronchodilator Plethysmography (Lung Vol) Diffusing Cap (DLCO) Flow Vol Loop PFT Interpretation DOS: 10/12/2021 REQUESTING: Tray Walker APRN REASON FOR TESTING: Asthma PULMONARY FUNCTION TESTS Results are reliable and reproducible. Spirometry: Pre-bronchodilator FEV1 is 88% predicted, 3.27 L, normal. FVC is 114%, normal. FEV1/FVC ratio is 74%, normal. DAZ08-44% is 44%, decreased. After bronchodilator, there us a 37% increase in MVJ50-17%, and this is consistent with asthma. There is no significant increase in the FEV1 or FVC after bronchodilator administration. Lung volumes: Total lung capacity is 123%, consistent with mild hyperinflation. Residual volume is 147% consistent with moderate air trapping. Normal airway resistance. Diffusion: DLCO 95%, normal. Flow volume loop: Normal. IMPRESSION: This full pulmonary function test with bronchodilator shows a small airways pattern with good response to bronchodilator, mild hyperinflation and moderate air trapping. In the proper clinical setting this is consistent with asthma. Santa Ortega MD
== END 2021-10-12 12:56 | disposition home or self-care (01) ==
LOC: CHSCARD 12:56
PROVIDERS: PCP Nurse Practitioner Family; Visit Provider Nurse Practitioner Family
DX: J45.909 Unspecified asthma, uncomplicated (principal); R06.02 Shortness of breath
CPT/HCPCS: 36415; 82785; 85025; 86003; 94060; 94618; 94726; 94729

== ENCOUNTER 2022-08-05 17:38 | Emergency (ER) | payer OTHER, SELFPAY ==
[2022-08-05 17:58] VITALS: BP 145/82; PULSE 79; RESP 16; TEMP 36.8; O2SAT 99
--- NOTE | 2022-08-05 18:49 | ED.GENADULT ---
HPI - General Adult General Chief complaint: Eye Problems Stated complaint: FB in left eye Source: patient Mode of arrival: ambulatory Limitations: no limitations History of Present Illness HPI narrative: Patient presents for evaluation of left eye irritation. Symptom onset this morning, he woke from sleep with the symptoms. Yesterday he was riding in a [id number]. He believes he got something caught and has left eye. He reports redness, discomfort, and yellow discharge. He is not were contacts or glasses. He attempted to irrigate his eye without significant improvement in his symptoms. He also played some allergy drops without improvement. Denies any visual disturbance. He is not diabetic. Smokes approximately half a pack per day. No additional complaints or concerns. Related Data Allergies Allergy/AdvReac Type Severity Reaction Status Date / Time No Known Allergies Allergy Verified 08/05/22 17:59 Review of Systems Review of Systems: CONSTITUTIONAL: Denies fever, chills, or sweats. EYES: Reports redness, yellow discharge and irritation to left eye with associated discomfort ENT: Denies rhinorrhea, congestion, sore throat, or otalgia. CARDIOVASCULAR: Denies chest pain, palpitations, or edema. RESPIRATORY: Denies cough or dyspnea. GASTROINTESTINAL: Denies abdominal pain, nausea, vomiting, or diarrhea. GENITOURINARY: Denies dysuria or hematuria. SKIN: Denies rash or itching. MUSCULOSKELETAL: Denies back pain, joint pain, or myalgia. NEUROLOGIC: Denies headache, numbness, dizziness, or weakness. PSYCHIATRIC: Denies anxiety or depression. [facility] Past Medical History Medical History Asthma Kidney tumor Patient denies medical problems Surgical History Surgical History History of nephrectomy, right Hx of tonsillectomy No pertinent past surgical history Family History Family History Father Hypertension Sleep apnea Mother Diverticulitis Social History Social History Social History: Patient drinks caffeine often. Smoking packs per day: 0.5 Smoking cigarettes per day: 10.0 Years smoked: 13 Smoking pack-years: 6.50 Tobacco type: cigarettes Second hand tobacco smoke exposure: Yes Alcohol intake: current Alcohol use details: Patient drinks alcohol often. Substance use: never Substance use type: does not use Additional living arrangements comments: Patient is Additional occupation/education comments: Property Analyst for [employer] Gender identity (if verbalized by the patient): Male Sexual Orientation (if Verbalized by the Patient): Straight or Heterosexual Spiritual care concerns: No Exam Narrative: GENERAL: Well-appearing, well-nourished, and in no acute distress. HEAD: Normocephalic, atraumatic. EYES: PERRLA and EOMI. There is left conjunctival injection with yellow discharge noted on eyelashes. There is 2 areas of dye uptake to left eye at 4-6 o'clock positions when evaluated with fluorescein and Wood's lamp evaluation ENT: Nares clear, no rhinorrhea or epistaxis. Mucous membranes moist. Oropharynx without tonsillar hypertrophy exudate or other lesions. Bilateral TMs pearly lugo nonbulging NECK: Supple. No adenopathy or masses. No carotid bruits or JVD CHEST: Clear to auscultation. No respiratory distress. No wheezes rales or rhonchi HEART: Regular rate and rhythm. No murmur heard. Normal peripheral pulses. ABDOMEN: Soft, nontender, nondistended, normal active bowel sounds. EXTREMITIES: Normal range of motion. No edema. SKIN: Warm, dry, no rash. NEURO: No focal deficits. Alert and oriented x3. PSYCH: Normal mood and affect. Course Course Emergency Course: This is a 37-year-old male who presented for evaluation of left e
== END 2022-08-05 18:56 | disposition home or self-care (01) ==
PROVIDERS: Emergency Provider Nurse Practitioner
DX: S05.02XA Injury of conjunctiva and corneal abrasion without foreign body, left eye, initial encounter (principal); X58.XXXA Exposure to other specified factors, initial encounter; F17.210 Nicotine dependence, cigarettes, uncomplicated; J45.909 Unspecified asthma, uncomplicated
CPT/HCPCS: 99213; A9270; G0463